=== PATIENT | female | born 1990 | race Caucasian/White ===

== ENCOUNTER 2019-11-26 09:48 | Emergency (ER) | payer OTHER ==
[2019-11-26 10:33] LABS: BILIRUBIN,URINE NEGATIVE (NEGATIVE); GLUCOSE, URINE (UA) NEGATIVE (NEGATIVE); KETONES,URINE (UA) NEGATIVE (NEGATIVE); LEUKOCYTE ESTERASE, URINE NEGATIVE (NEGATIVE); NITRITE,URINE NEGATIVE (NEGATIVE); OCCULT BLOOD,URINE MODERATE (NEGATIVE); PROTEIN,URINE NEGATIVE (NEGATIVE); UROBILINOGEN,URINE 0.2 (NORMAL) E.U./dL (NORMAL)
[2019-11-26 10:37] LABS: BASOPHILS % (AUTO) 0.6 %; EOSINOPHILS % (AUTO) 0.6 %; HGB - HEMOGLOBIN 13.8 g/dL (12.0-16.0); LYMPHOCYTES # (AUTO) 1.4 10^3/uL (1.5-3.5); LYMPHOCYTES % (AUTO) 26.7 %; MEAN CORPUSCULAR HEMOGLOBIN 32.9 pg (27.0-31.0); MEAN CORPUSCULAR HGB CONC 34.4 g/dL (32.0-36.0); MEAN CORPUSCULAR VOLUME 95.5 fL (81.0-99.0); MEAN PLATELET VOLUME 9.5 fL (7.9-10.8); MONOCYTES # (AUTO) 0.4 10^3/uL (0.0-1.0); MONOCYTES % (AUTO) 6.9 %; NEUTROPHILS # (AUTO) 3.5 10^3/uL (1.5-6.6); NEUTROPHILS % (AUTO) 64.8 %; PLT - PLATELET COUNT 244 10^3/uL (130-450); RED CELL DISTRIBUTION WIDTH 12.2 % (12.0-15.0); WHITE BLOOD COUNT 5.4 x10^3/uL (4.8-10.8)
[2019-11-26 10:51] LABS: ALBUMIN 4.3 g/dL (3.2-5.5); ALBUMIN/GLOBULIN RATIO 1.4 (1.0-2.2); BILIRUBIN,TOTAL 0.9 mg/dL (0.2-1.0); CALCIUM 9.2 mg/dL (8.5-10.3); CREATININE 0.7 mg/dL (0.4-1.0); TOTAL PROTEIN 7.3 g/dL (6.7-8.2)
[2019-11-26 10:52] LABS: CLARITY,URINE CLEAR (CLEAR)
[2019-11-26 10:53] LABS: BACTERIA,URINE Rare /HPF (None Seen); RBC,URINE 0-5 /HPF (0-5); SQUAMOUS EPITHELIAL CELL,UR RARE Squamous (<= Few)
--- NOTE | 2019-11-26 11:48 | Ultrasound Report ---
Reason: 4wks bleeding Procedure Date: 11/26/2019 Accession Number: [id number] / [id number] Procedure: US - OB First Trimester CPT Code: Final Report FULL RESULT: EXAM: FIRST TRIMESTER OBSTETRIC ULTRASOUND (Less than 11 weeks) EXAM DATE: 11/26/2019 11:05 AM. CLINICAL HISTORY: 4 weeks , vaginal bleeding, no beta-hCG available. LMP: 11/01/2019. COMPARISONS: None. TECHNIQUE: Transabdominal and transvaginal ultrasound examination with static image documentation. CLINICAL DATES: EGA 3 weeks 5 days with GORDY 08/07/2020 based on LMP. ASSESSMENT: Gestational Sac: Not visible. Embryo: Not visible. Cardiac activity: Not applicable. Yolk sac: Not applicable. Amniotic fluid: Not applicable. Early placenta: Not applicable. Other: None. MATERNAL STRUCTURES: Uterus: Anteverted. Unremarkable. Cervix: Closed. Right Ovary/Adnexa: The ovary measures 3.1 x 2.2 x 2.1 cm, volume 7.5 cc. Unremarkable. Left Ovary/Adnexa: The ovary measures 2.6 x 2.4 x 1.7 cm, volume 5.5 cc. Unremarkable. Free Fluid: Trace. Other: None. IMPRESSION: 1. No gestational sac currently visualized. This may represent a normal , too small to visualize, or potentially a failed . Sonographic follow-up to ensure viability suggested in approximately 3 weeks and correlation with beta-hCG trend. 2. 3 weeks 5 days estimated gestational age per LMP. RADIA
--- NOTE | 2019-11-26 12:15 | ED Physician Documentation ---
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 She is come to the emergency department for evaluation. She believes she might be 4 weeks along. She is passing some clots. She has had one prior that went well resulting in the of daughter 8 months ago. Review of Systems Constitutional: denies: Fever Eyes: denies: Decreased vision Ears: denies: Ear pain Nose: denies: Congestion Throat: denies: Sore throat Respiratory: denies: Cough GI: reports: Abdominal Pain. denies: Vomiting : denies: Dysuria, Frequency PD PAST MEDICAL HISTORY - Past Medical History Past Medical History: No - Past Surgical History Past Surgical History: No - Present Medications Home Medications: Ambulatory Orders Medication Instructions Recorded Confirmed Calcium Carbonate [Calcium] mg PO DAILY 11/26/19 Pnv No.95/Ferrous Fum/Folic AC 1 each PO 11/26/19 [ Caplet] - Allergies Allergies/Adverse Reactions: Allergies Allergy/AdvReac Type Severity Reaction Status Date / Time No Known Drug Allergies Allergy Verified 11/26/19 10:06 - Social History Does the pt smoke?: No Smoking Status: Never smoker Does the pt drink ETOH?: No Does the pt have substance abuse?: No - Immunizations Immunizations are current?: Yes PD ED PE NORMAL - Vitals Vital signs reviewed: Yes (hypertensive) - General General: Alert and oriented X 3, No acute distress, Well developed/nourished - HEENT HEENT: Atraumatic, PERRL, EOMI - Neck Neck: Supple, no meningeal sign - Respiratory Respiratory: No respiratory distress - Back Back: No CVA TTP, No spinal TTP - Derm Derm: Normal color, Warm and dry, No rash - Extremities Extremities: No deformity, No edema - Neuro Neuro: Alert and oriented X 3, 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, No motor deficit, No sensory deficit, Normal speech Eye Opening: Spontaneous Motor: Obeys Commands Verbal: Oriented GCS Score: 15 - Psych Psych: Normal mood, Normal affect Results - Vitals Vitals: Vital Signs - 24 hr 11/26/19 11/26/19 10:03 12:33 Temperature 36.7 C Heart Rate 77 74 Respiratory 18 12 Rate Blood Pressure 139/92 H 134/88 H O2 Saturation 99 99 Oxygen O2 Source Room air - Labs Labs: Laboratory Tests 11/26/19 11/26/19 11/26/19 10:10 10:30 10:30 WBC 5.4 RBC 4.20 Hgb 13.8 Hct 40.1 MCV 95.5 MCH 32.9 H MCHC 34.4 RDW 12.2 Plt Count 244 MPV 9.5 Neut # (Auto) 3.5 Lymph # (Auto) 1.4 L [place] # (Auto) 0.4 Eos # (Auto) 0.0 Baso # (Auto) 0.0 Absolute Nucleated RBC 0.00 Nucleated RBC % 0.0 Sodium 137 Potassium 3.8 Chloride 105 Carbon Dioxide 24 Anion Gap 8.0 BUN 11 Creatinine 0.7 Estimated GFR (MDRD) 98 Glucose 108 H Calcium 9.2 Total Bilirubin 0.9 AST 17 ALT 14 Alkaline Phosphatase 62 Total Protein 7.3 Albumin 4.3 Globulin 3.0 Albumin/Globulin Ratio 1.4 Lipase 36 HCG, Quant Urine Color LIGHT YELLOW Urine Clarity CLEAR Urine pH 7.0 Ur Specific Turner <=1.005 Urine Protein NEGATIVE Urine Glucose (UA) NEGATIVE Urine Ketones NEGATIVE Urine Occult Blood MODERATE H Urine Nitrite NEGATIVE Urine Bilirubin NEGATIVE Urine Urobilinogen 0.2 (NORMAL) Ur Leukocyte Esterase NEGATIVE Urine RBC 0-5 Urine WBC 0-3 Ur Squamous Epith Cells RARE Squamous Urine Bacteria Rare Ur Microscopic Review INDICATED Urine Culture Comments NOT INDICATED Blood Type 11/26/19 11/26/19 10:30 10:30 WBC RBC Hgb Hct MCV MCH MCHC RDW Plt Count MPV Neut # (Auto) Lymph # (Auto) [place] # (Auto) Eos # (Auto) Baso # (Auto) Absolute Nucleated RBC Nucleated RBC % Sodium Potassium Chloride Carbon Dioxide Anion Gap BUN Creatinine Estimated GFR (MDRD) Glucose Calcium Total Bilirubin AST ALT Alkaline Phosphatase Total Protein Albumin Globulin Albumin/Globulin Ratio Lipase HCG, Quant 588.77 Urine Color Urine Clarity Urine pH Ur Specific Turner Urine Protein Urine Glucose (UA) Urine Ketones Urine Occult Blood Urine Nitrite Urine Bilirubin Urine Urobilinogen Ur Leukocyte Esterase Urine RBC Urine WBC Ur Squamous Epith Cells Urine Bacteria Ur Microscopic Review Urine Culture Comments Blood Type A POSITIVE - Rads (name of study) ob u/s Radiology: Prelim report reviewed (Impression: 1. No gestational sac currently visualized. This may represent a normal , too small to visualize, or potentially a failed . Sonographic follow-up to visualize viability suggested in approximately 3 weeks and correlation with beta hCG trend. 3 weeks 5 days estimated gestational age per LMP.), EMP read indepedently, See rad report PD MEDICAL DECISION MAKING - ED course Complexity details: reviewed results, re-evaluated patient, considered differential, d/w patient ED course: 29-year-old female with early has a quant of 588 and no visualized in the uterus on formal ultrasound. She will need repeat hCG in 2 days time and possibly a repeat ultrasound in 2 to 3 weeks. I discussed with the patient the importance of the repeat blood test and the likely outcomes and she will follow-up. Departure - Departure Disposition: 01 Home, Self Care Clinical Impression: Hemorrhage, , early, Threatened Condition: Stable Instructions: ED Abdominal Pain Rule Out Ectopic, ED Miscarriage Poss Follow-Up: CHAITANYA PERDUE [Primary Care Provider] - Comments: Today your quantitative hCG is 588 and this would usually represent a that is too early to be seen by ultrasound. We did not find any evidence of an intrauterine on your ultrasound. This may represent a failed or just too early. A repeat hCG will need to be done and 2 days. Follow-up with your OB doctor. Discharge Date/Time: 11/26/19 12:34
[2019-11-26 12:34] VITALS: BP 134/88
== END 2019-11-26 12:34 | disposition home or self-care (01) ==
LOC: ED 09:48
DX: O20.0 Threatened abortion (principal); Z3A.01 Less than 8 weeks gestation of pregnancy
CPT/HCPCS: 36415; 76801; 76817; 80053; 81001; 81003; 83690; 84702; 85025; 86900; 86901; 87086; 99283; 99284

== ENCOUNTER 2019-11-28 07:52 | Outpatient (CLI) | payer OTHER | END 2019-11-28 23:59 | disposition home or self-care (01) | LOC: LAB.WCP 07:52 | PROVIDERS: ATTEND Obstetrics & Gynecology | DX: O20.0 Threatened abortion (principal); Z3A.00 Weeks of gestation of pregnancy not specified | CPT/HCPCS: 36415; 84702 ==

== ENCOUNTER 2020-07-22 16:16 | Outpatient (CLI) | payer OTHER ==
--- NOTE | 2020-07-23 09:11 | Ultrasound Report ---
PROCEDURE: OB F/U or Repeat INDICATIONS: UTERINE SIZE/DATE DISCREPANCY OUTSIDE/PRIOR DATING DATA: Last menstrual period (LMP): Unknown. LMP-based estimated date of delivery (GORDY): Not applicable. First dating scan (date and location): 02/18/2020, office of OB provider at [facility]. Estimated date of delivery (GORDY) from first dating scan: 08/29/2020. TECHNIQUE: Real-time scanning was performed of the fetus, with image documentation and biometric measurements. Endovaginal scanning: Not performed COMPARISON: Notes from in office ultrasound of the provider dated 02/18/2020, second trimester ultras ound report dated 04/15/2020 FINDINGS: General: A single living intrauterine gestation is present. Presentation: Cephalic Placenta: Placental position is posterior, without previa. Amniotic fluid index: 12.3 cm, normal for gestational age. heart rate: 135 beats per minute. Maternal cervical canal: 5 cm long; normal length is 2.5 cm or more. biometrics: Biparietal diameter: 8.7 cm, 35 weeks, 2 days Head circumference: 31.6 cm, 35 weeks, 4 days Abdominal circumference: 32.3 cm, 36 weeks, 2 days Femur length: 3.6 cm, 32 weeks, 4 days Estimated gestational age from initial scan: 34 weeks, 4 days. Composite gestational age from present scan: 35 weeks, 0 days Estimated weight and percentile: 2605 g, 63rd percentile Measurement variability in biometric dating: +/- 10 days from 12-20 weeks gestation, +/- 2 weeks from 20-30 weeks gestation, +/- 3 weeks at 30 weeks gestation or more. IMPRESSION: 1. Single living intrauterine with appropriate growth for gestational age. 2. Closed cervix and normal amniotic fluid volume. Reviewed by: Cheryle Perdue MD on 07/23/2020 9:10 AM PST Approved by: Cheryle Perdue MD on 07/23/2020 9:10 AM PST Station ID: [id number]
== END 2020-07-22 16:17 | disposition home or self-care (01) ==
LOC: DI 16:16
PROVIDERS: ATTEND Advanced Practice Midwife
DX: O26.849 Uterine size-date discrepancy, unspecified trimester (principal)

== ENCOUNTER 2020-08-13 07:00 | Outpatient (CLI) | payer OTHER | END 2020-08-13 23:59 | disposition home or self-care (01) | LOC: LAB.R 07:00 | PROVIDERS: ATTEND Advanced Practice Midwife | DX: Z34.90 Encounter for supervision of normal pregnancy, unspecified, unspecified trimester (principal); Z36.85 Encounter for antenatal screening for Streptococcus B | CPT/HCPCS: 87797 ==

== ENCOUNTER 2020-09-07 09:06 | Outpatient (CLI) | payer OTHER ==
[2020-09-07 09:36] VITALS: BP 125/83
[2020-09-07 10:16] LABS: RUPTURE OF MEMBRANES PLUS NEGATIVE (NEGATIVE)
--- NOTE | 2020-09-07 15:15 | PROVIDER PROGRESS NOTE ---
- HPI Chief Complaint: Leakage of vaginal fluid Current : Current EDU 09/03/20 Gestation 40 Weeks and 4 Days 3 Para 1 Vital Signs Temperature 36.7 C 09/07/20 09:24 Heart Rate 93 09/07/20 09:24 Respiratory Rate 16 09/07/20 09:24 Blood Pressure 125/83 H 09/07/20 09:24 O2 Saturation 100 09/07/20 09:24 Temperature 36.7 C 09/07/20 09:41 Heart Rate 93 09/07/20 09:41 Respiratory Rate 16 09/07/20 09:41 Blood Pressure 125/83 H 09/07/20 09:41 O2 Saturation 100 09/07/20 09:41 - Procedures OB Procedure Performed: NST NST Procedure: NST Procedure Start Date 09/07/20 Start Time 09:22 Stop Time 10:31 Vibroacoustic Stimulation Used No Patient States Movement Yes - Plan Plan: Shelia presents to [facility] with c/o small gush of clear fluid last night following by moderate menstrual-like cramping which has mostly resolved since that time. She has noted increased vaginal discharge but wants to ensure her water has not broken. She denies vaginal bleeding. She reports +FM. She denies further questions or concerns today. She denies itching, burning or discomfort associated with discharge and denies foul odor. NST performed 09/07/2020 NST read 09/07/2020 NST reactive FHR baseline 150, moderate variability, + accels, no decels Intermittent, mild contractions in irregular pattern that palpate mild with soft resting tone. ROM+ - NEGATIVE SVE deferred A/P: Vaginal discharge in Pt released home with precautions. Has IOL scheduled later this week. Pt verbalized understanding and agrees to above plan. She denies further questions or concerns at this time. FINAL DIAGNOSIS: Vaginal discharge in
== END 2020-09-07 10:35 | disposition home or self-care (01) ==
LOC: WFO 09:06 → FBP 09:17 → WFO 10:35
PROVIDERS: ATTEND Nurse Practitioner Obstetrics & Gynecology
DX: O99.891 Other specified diseases and conditions complicating pregnancy (principal); N89.8 Other specified noninflammatory disorders of vagina; Z3A.40 40 weeks gestation of pregnancy
CPT/HCPCS: 59025; 84112; 99213

== ENCOUNTER 2020-09-07 22:38 | Inpatient (IN) | payer OTHER ==
[2020-09-08] MEDS ORDERED: miSOPROStoL 200 MCG TABLET BC PRN (00:01)
[2020-09-08] MEDS ORDERED: OXYTOCIN 10 UNIT/ML VIAL IM PRN (00:01)
[2020-09-08] MEDS ORDERED: TRANEXAMIC ACID IN NACL 1,000 MG/100 ML BAG IV PRN (00:01)
[2020-09-08] MEDS ORDERED: CARBOPROST TROMETHAMINE 250 MCG/ML AMP IM PRN (00:01)
[2020-09-08] MEDS ORDERED: fentaNYL 100 MCG/2 ML VIAL IVP PRN (00:01)
[2020-09-08] MEDS ORDERED: SODIUM CHLORIDE FLUSH 0.9% 10 ML SYRINGE IVP PRN (00:01)
[2020-09-08] MEDS ORDERED: ONDANSETRON 4 MG/2 ML VIAL IVP PRN (00:01)
[2020-09-08] MEDS ORDERED: METHYLERGONOVINE 0.2 MG/ML VIAL IM PRN (00:01)
[2020-09-08] MEDS ORDERED: LIDOCAINE-MPF 1% 30 ML VIAL ID PRN (00:01)
[2020-09-08] MEDS ORDERED: OXYTOCIN/SODIUM CHLORIDE 500 ML IV PRN (00:01)
[2020-09-08] MEDS: LACTATED RINGERS 1,000 ML IV SCH ×2 (00:22→03:57)
[2020-09-08 00:35] LABS: BASOPHILS % (AUTO) 0.2 %; EOSINOPHILS % (AUTO) 0.1 %; HCT - HEMATOCRIT 39.8 % (37.0-47.0); HGB - HEMOGLOBIN 13.8 g/dL (12.0-16.0); LYMPHOCYTES # (AUTO) 1.8 10^3/uL (1.5-3.5); LYMPHOCYTES % (AUTO) 14.9 %; MEAN CORPUSCULAR HGB CONC 34.7 g/dL (32.0-36.0); MEAN PLATELET VOLUME 10.6 fL (7.9-10.8); MONOCYTES # (AUTO) 0.9 10^3/uL (0.0-1.0); MONOCYTES % (AUTO) 7.1 %; NEUTROPHILS # (AUTO) 9.4 10^3/uL (1.5-6.6); NEUTROPHILS % (AUTO) 77.1 %; PLT - PLATELET COUNT 198 10^3/uL (130-450); RED BLOOD COUNT 4.06 10^6/uL (4.20-5.40); RED CELL DISTRIBUTION WIDTH 12.6 % (12.0-15.0); WHITE BLOOD COUNT 12.2 x10^3/uL (4.8-10.8)
[2020-09-08] MEDS ORDERED: BUPIVACAINE 0.25% PF 10 ML VIAL ONE (00:49)
[2020-09-08] MEDS ORDERED: fentaNYL 100 MCG/2 ML VIAL ONE (00:49)
[2020-09-08] MEDS ORDERED: ROPIVACAINE 0.2% 200 MG/100 ML BAG EP ONE (00:49)
[2020-09-08] MEDS ORDERED: SODIUM CHLORIDE FLUSH 0.9% 10 ML SYRINGE IVP SCH (01:00)
--- NOTE | 2020-09-08 01:20 | ANESTHESIA ---
Pre-Anesthesia VS, & Labs - Diagnosis active labor - Procedure labor epidural Vital Signs: Temp Pulse Resp BP Pulse Ox 36.5 C 70 22 129/82 H 100 09/07/20 23:08 09/07/20 23:08 09/07/20 23:08 09/07/20 23:08 09/07/20 23:08 Height: 5 ft 7 in Weight (kg): 98.157 kg Body Mass Index: 33.9 BMI Classification: Obese - Is Patient ?: Yes - Lab Results Current Lab Results: Laboratory Tests 09/08/20 00:15: Blood Type A POSITIVE, Antibody Screen NEGATIVE 09/08/20 00:15: WBC 12.2 H, RBC 4.06 L, Hgb 13.8, Hct 39.8, MCV 98.0, MCH 34.0 H , MCHC 34.7, RDW 12.6, Plt Count 198, MPV 10.6, Neut # (Auto) 9.4 H, Lymph # (Auto) 1.8, [place] # (Auto) 0.9, Eos # (Auto) 0.0, Baso # (Auto) 0.0, Absolute Nucleated RBC 0.00, Nucleated RBC % 0.0 Lab results reviewed: Yes Fish Bones: 09/08/20 00:15 Home Medications and Allergies Active Medications Carboprost Tromethamine (Carboprost Tromethamine 250 Mcg/Ml Amp) 250 mcg IM Q15M PRN PRN Reason: Step 4: Hemorrhage protocol Stop: 09/13/20 00:02 Fentanyl (Fentanyl 100 Mcg/2 Ml Vial) 50 mcg IVP Q1H PRN PRN Reason: PAIN Lactated Ringer's (Lr) 1,000 mls @ 150 mls/hr IV .Q6H40M DYLAN Last Infusion: 09/08/20 00:51 Dose: 150 mls/hr Documented by: Oxytocin/Sodium Chloride (Pitocin/Sodium Chloride) 500 mls @ 999 mls/hr IV PRN PRN; Protocol PRN Reason: POST- HEMORR PREVENTION Stop: 09/13/20 00:02 Tranexamic Acid (Tranexamic 1,000 Mg/100ml-Nacl) 1,000 mg in 100 mls @ 600 mls/hr IV .ONCE PRN PRN Reason: EBL >1200mL and within 3hr Stop: 09/13/20 00:02 Lidocaine HCl (Lidocaine-Mpf 1% 30 Ml Vial) 30 ml ID .ONCE PRN PRN Reason: PERINEAL REPAIR Stop: 09/13/20 00:02 Methylergonovine Maleate (Methylergonovine 0.2 Mg/Ml Vial) 0.2 mg IM .ONCE PRN PRN Reason: Step 2: Hemorrhage protocol Stop: 09/13/20 00:02 Misoprostol (Misoprostol 200 Mcg Tablet) 800 mcg BC .ONCE PRN PRN Reason: Step 3: Hemorrhage protocol Stop: 09/13/20 00:02 Ondansetron HCl (Ondansetron 4 Mg/2 Ml Vial) 4 mg IVP Q4H PRN PRN Reason: Nausea / Vomiting Oxytocin (Oxytocin 10 Unit/Ml Vial) 10 unit IM .ONCE PRN PRN Reason: Step one: If no IV access Stop: 09/13/20 00:02 Sodium Chloride (Sodium Chloride Flush 0.9% 10 Ml Syringe) 10 ml IVP PRN PRN PRN Reason: NEEDED PER PROVIDER ORDERS Sodium Chloride (Sodium Chloride Flush 0.9% 10 Ml Syringe) 10 ml IVP 0100,0900,1700 [facility] Pnv No.95/Ferrous Fum/Folic AC [ Caplet] 1 each PO DAILY 11/26/19 Allergies/Adverse Reactions: Allergies Allergy/AdvReac Type Severity Reaction Status Date / Time No Known Drug Allergies Allergy Verified 09/07/20 23:16 Anes History & Medical History - Anesthetic History Anesthesia Complications: reports: No previous complications Family history of Anesthesia Complications: Denies Family history of Malignant Hyperthermia: Denies - Medical History Smoking Status: Never smoker Exam General: Alert, Oriented x3, Cooperative, No acute distress Plan Anesthesia Type: Epidural Consent for Procedure(s) Verified and Reviewed: Yes Code Status: Attempt Resuscitation ASA classification: 2-Mild systemic disease Is this case an emergency?: No
--- NOTE | 2020-09-08 01:53 | HISTORY & PHYSICAL EXAMINATION ---
Admit History - Visit Reason Visit Reason: Contractions - : 3 Parity: 1 Premature: 0 Ectopic: 0 : 1 Care: positive: [facility] Risk/History: positive: None Complications This : positive: None Smoking Status: Former smoker - Mother's Labs Mother's Blood Type: positive: A Mother's RH: positive: Positive GBS: positive: Group B Step Negative Rubella Status: positive: Immune Meds/Allgy - Home Medications Home Medications: Ambulatory Orders Medication Instructions Recorded Confirmed Pnv No.95/Ferrous Fum/Folic AC 1 each PO DAILY 11/26/19 09/07/20 [ Caplet] - Allergies Allergies/Adverse Reactions: Allergies Allergy/AdvReac Type Severity Reaction Status Date / Time No Known Drug Allergies Allergy Verified 09/07/20 23:16 Review of Systems - Constitutional Constitutional: denies: Fatigue, Fever, Chills - Eyes Eyes: denies: Blurred vision, Spots in vision, Dipolpia - Cardiovascular Cariovascular: denies: Irregular heart rate, Chest pain, Edema - Respiratory Respiratory: denies: SOB at rest - Gastrointestinal Gastrointestinal: denies: Change in bowel habits - Integumentary Integumentary: denies: Rash, Pruritis - Neurological Neurological: denies: Headache Physical - Abdominal Exam Vital Signs: Temp Pulse Resp BP Pulse Ox 36.5 C 70 22 129/82 H 100 09/08/20 00:36 09/07/20 23:08 09/07/20 23:08 09/07/20 23:08 09/07/20 23:08 Contraction Frequency (min/apart): 2-4 Contraction Intensity: positive: Moderate Uterine Resting Tone: positive: Soft - Monitoring Heart Rate Baseline: 140 Strip Review: positive: Category I - Presentation Presentation: positive: Vertex - Vaginal Exam Membranes: positive: Membranes intact Dilation (in cm): 4 Effacement (%): 80 Station: positive: -2 - Speculum Exam Speculum Exam Performed: positive: No Plan for Labor - Plan For Labor I expect patient to be DC'd or transferred within 96 hours.: Yes Plan for Labor: HPI: Shelia is a 30yo @ 40.5wks gestation by LMP c/w 12.3 wk U/S who presents to [facility] with c/o contractions. She reports contractions have increased in frequency and intensity over the last several hours. She denies vaginal bleeding. She experienced a small "gush" of fluid last night but presented this morning for evaluation and her ROM+ was negative. She states she has not noticed any continued leakage of fluid since that time. She reports +FM. Upon arrival SVE /-2 and vertex. Patient monitored x 1 hour and repeat SVE -2. She has been a patient of [facility] since her [facility] care [facility] at . She has received consistent care through the duration of her which has remained uncomplicated. She will be admitted to [facility] for expectant management. Dating criteria: LMP 11/27/2019 Initial ultrasound @ 12.3wks c/w LMP dating Serial exams - agree Medications: PNV; TUMS PRN Allergies: NKDA OB Hx: G1: 03/07/2019, 41wks, , 13hr labor, epidural, NHOH, Female, 8lb6oz. 3hr second stage, 3rd degree laceration G2: 11/27/2019 - SAB G3: current PMHx: no significant Surgical Hx: [place] tooth (2008) Social Hx: Former smoker, No ETOH or IVDA. 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 3VC. JUDITH wnl. EFW 51%. "Decreased abdominal to head circumference, screen for maternal diabetes" Growth US: @33.6wks. JUDITH 12.3. Posterior placenta. EFW 63%. Glucola: 167 (3hr- 78/134/122/112- wnl) Flu: 04/24/2020 TDAP : 06/09/2020 GBS at 37.0- NEG HSV: denies self and partner [place] . Husb: Brett (civilian). 1yo daughter Suze (8#6oz, epidural, 3h push, 3rd degree lac); Baby: BOY Chinmay? "wait and see" Desires unmedicated delivery pp contraception: has had great success with Mirena in past. Aware needs separate referral from [facility]. PAP:02/18/2020- negative HPV, nilm per patient. Physical Exam: Normocephalic, atraumatic Heart RRR w/o M/G/R Lungs CTAB Abdomen gravid, soft, and nontender FHR baseline 130s, moderate variability, + accels, no decels Contractions palpate moderate every 2-3 minutes with soft resting tone SVE 4/80/-2, vertex Bilateral LE's trace edema supportive at the bedside. Mood is good. Assessment: 30yo @ 40.3wks gestation by LMP c/w 12.3wk U/S Active labor GBS neg Plan: Admit to [facility] for expectant management Epidural per maternal request Encouraged position changes in bed as tolerated. Anticipate
--- NOTE | 2020-09-08 05:37 | DELIVERY NOTE ---
Delivery Note - Labor Labor: positive: Spontaneous - Delivery Method Delivery Method: positive: Spontaneous vaginal delivery - Presentation Presentation: positive: Vertex, APRIL - left occiput anterior - Nuchal Cord Nuchal Cord: positive: Present, Reduced - Amniotic Fluid Description Amniotic Fluid Description: positive: Clear - Episiotomy Type Episiotomy Type: positive: None - Laceration Laceration: positive: 1st degree, Perineal - Suture Suture Type: positive: Vicryl Suture Size: positive: 3-0 - Delivery Outcome Delivery Outcome: positive: Livebirth - : positive: Placed in direct skin contact with mother, Bulb syringe, Stimulated, Warmed, [place] used sex: positive: Male - Cord Cord: positive: 3 vessels - Placenta Placenta: positive: Intact, Spontaneous - Estimated Blood Loss Estimated Blood Loss (in cc): 200 - Post Delivery Events Post Delivery Events: positive: No post delivery events - Delivery Comments (Free Text/Narrative) Delivery Comments (Free Text/Narrative): Labor: This 30yo @ 40.5wks gestation by LMP c/w 12.3wk U/S presented to [facility] on 09/07/2020 at approximately 2240 with c/o contractions. Cervix was 3/80/-2 and vertex. Pt ambulated x 1 hr with repeat SVE 4/80/-2. Pt was admitted to [facility] for expectant management. FHR pattern demonstrated Category I pattern throughout labor. Normal labor course. Epidural per maternal request. AROM occurred near 0435 and was noted to be a moderate amount of clear fluid. Pt progressed to c/c/+2 at 0435 with onset of active pushing at 0455. . Normal of a viable male infant on 09/08/2020 at 0458. Total second stage 3 minutes. Nuchal cord x 2 and body cord x 1 easily reduced. Compound rig ht hand noted. The was placed on maternal abdomen, stimulated, dried, and placed skin to sin. 's were 7/9 at 1 and 5 min respectively. Pitocin administered via IV for hemostasis. The umbilical cord was allowed to stop pulsating at which time it was doubly clamped by CNM and cut by FOB. Cord blood was obtained. Fundal massage and gentle cord traction applied for active management of the third stage. Placenta delivered spontaneously and intact at 0503. EBL 200mL. Fourth stage: Uterine fundus firm and there is no excessive bleeding. The perineum, vagina, and cervix were inspected and found to have 1st degree perineal laceration. In addition there was noted to be an approximately 1cm x 1cm raised cyst protruding from the laceration. The cyst was grasped with tissue forceps and a small amount of milky serosal fluid freely drained. Remnants of the cyst were removed with sterile scissors and repair was completed using a 3-[address]-1 needle, in standard fashion under sterile conditions. Vaginal examination following repair was performed. Tissues well approximated. initiated. Family bonding well. Both mother and baby were left in stable condition.
[2020-09-08] MEDS ORDERED: HYDROCORTISONE 1% CREAM 28 GM TUBE PR PRN (05:44)
[2020-09-08] MEDS ORDERED: WITCH HAZEL/GLYCERIN 1 PAD TOP PRN (05:44)
[2020-09-08] MEDS: ACETAMINOPHEN 500 MG TABLET PO SCH ×2 (07:50→16:18)
[2020-09-08] MEDS: IBUPROFEN 800 MG TABLET PO SCH ×3 (09:02→21:56)
[2020-09-08] MEDS: DOCUSATE SODIUM 100 MG CAPSULE PO SCH ×2 (09:02→21:56)
[2020-09-09] MEDS: ACETAMINOPHEN 500 MG TABLET PO SCH ×2 (01:02→09:56)
[2020-09-09] MEDS: IBUPROFEN 800 MG TABLET PO SCH ×2 (04:15→09:57)
--- NOTE | 2020-09-09 07:51 | Discharge Plan ---
Discharge Plan Problem Reviewed?: Yes Disposition: Home, Self Care Condition: Good Diet: Regular Activity Restrictions: No Restrictions Shower Restrictions: No Driving Restrictions: No Weight Bearing: Full Weight No Smoking: If you smoke, Please STOP! Call for help. Follow-up with: Katina Clark CNM, ARNP [Provider Admit Priv/Credential] -
--- NOTE | 2020-09-09 07:55 | PROVIDER PROGRESS NOTE ---
Subjective - Subjective Subjective: FINAL PROGRESS NOTE: S: Bonding well with baby. without difficulty other than mild discomfort with initial latch that resolves shortly into the feed. Bleeding decrease and is light. Pain well controlled with oral medications. They are eager to be discharged home this morning. supportive at the bedside. O: BP 102/58, HR 80, RR 19, T36.5 Heart RRR w/o M/G/R, lungs CTAB, abdomen soft and nontender with fundus firm at U. Perineum intact, repair without edema. Light lochia rubra. Bilateral LEs trace edema. A: 30yo -->P2 PPD#1 s/p TSVD of viable male infant Normal recovery P: Reviewed pp self care and warning s/sx. Has emergency contact information. F/u at [facility] in 1 week or sooner PRN. Pt and partner verbalized understanding and agrees to above plan. She denies further questions or concerns at this time. Objective - Vital Signs/Intake & Output Vital Signs: Vital Signs x48h Pulse Resp BP 09/09/20 04:17 80 19 102/58 L Intake & Output: Intake & Output 09/06/20 09/07/20 09/08/20 09/09/20 23:59 23:59 23:59 23:59 Intake Total 2195.50 Output Total 1150 Balance 1045.50 - Lab Results Fish Bones: 09/08/20 00:15 Other Labs: Lab Results x24hrs 09/08/20 Range/Units 00:15 Coronavirus (PCR) NEGATIVE
[2020-09-09 08:39] VITALS: BP 128/76
[2020-09-09] MEDS: DOCUSATE SODIUM 100 MG CAPSULE PO SCH (09:56)
--- NOTE | 2020-09-09 10:11 | DISCHARGE SUMMARY ---
Physician: GALI Mcelroy DATE OF ADMISSION: 09/08/2020 DATE OF DISCHARGE: 09/09/2020 DIAGNOSES ON ADMISSION: 1. A 30-year-old G2, P1-0-0-1, at 40.3 weeks' gestation by LMP consistent with 12.3 week ultrasound. 2. Active labor. 3. Group B Streptococcus negative. DIAGNOSES ON DISCHARGE: 1. A 30-year-old G2, P2-0-0-2, status post spontaneous vaginal delivery on 09/08/2020. 2. . 3. Normal recovery. HISTORY OF PRESENT ILLNESS: She is a patient of [facility], who presented on 2020 at approximately 2240 with complaints of contractions. She was noted to be 3 cm dilated, 80% ef faced, -2 station, vertex position. She ambulated for one hour and progressed to 4 cm dilated, 80% e ffaced, -2 station. She was admitted for expectant management. Normal labor course. Spontaneous ru pture of membranes occurred near 0435 and was noted to be a moderate amount of clear fluid. The rishi ent progressed to spontaneously deliver a viable male on 09/08/2020 at 0458. Nuchal cord x2 a nd body cord x1 easily reduced. Compound right hand noted. Apgars were 7 and 9 at 1 and 5 minutes r espectively. EBL 200 mL. The perineum, vagina and cervix were inspected and found to have first-degr ee perineal laceration, which was repaired using a 3-0 Vicryl on a CT1 needle in standard fashion und er sterile conditions. She has been doing well in her course. She is ambulating and tolerating a regular diet. She is urinating without difficulty and her lochia is normal. Her pain is well controlled with oral medications. She will be discharged home today on day #1 with instructions to continue he r vitamin while and to take ibuprofen and Tylenol [id number] as needed f or pain management. She intends to followup with myself at [facility] in 1 week for routine visit or sooner if needed. She has been given precautions to call if she has any worsening fevers, chills, abdominal pain, increased bleeding or foul-smelling vaginal lochia. TD: 09/09/2020 09:19
--- NOTE | 2020-09-09 10:46 | Labor Flowsheet ---
Labor Flowsheet Datetime Report Generated by CPN: 09/09/2020 10:46 Datetime: 09/09/2020 08:17 VITAL SIGNS NBP Sys/Emma/Mean (mmHg): 128 : 76 : 88 Pulse: 78 Datetime: 09/08/2020 05:08 Stage 2 Comments: repair in progress Datetime: 09/08/2020 04:45 STAGE 2 Pushing: No Urge to Push Datetime: 09/08/2020 04:44 I/O Interventions: Hernandez Discontinued Patient Care Comments: tip intact LaborFlag: Labor Datetime: 09/08/2020 04:42 COMMUNICATION Communication: Call/Page Placed to Provider Notification Reason: Status Update Communication Comments: CNM on her way Datetime: 09/08/2020 04:39 Monitor Interventions for FHR: Ultrasound Adjusted Pain Presence: None/Denies Patient Position/Activity: Right Tilt; High Fowlers Datetime: 09/08/2020 04:35 VAGINAL EXAM Dilatation (cm): 10.0 Effacement (%): 100 Station: 2 Datetime: 09/08/2020 04:30 Membranes Ruptured Date/Time: 09/08/2020 04:30 Membranes Rupture Method: Spontaneous Amniotic Fluid Color: Clear Amniotic Fluid Amount: Small Amniotic Fluid Odor: Normal Vaginal Bleeding: Normal Show Datetime: 09/08/2020 04:28 Actions for Decelerations: Side to Side Datetime: 09/08/2020 04:00 UTERINE ACTIVITY Monitor Mode: Palpation Frequency (min): 2-4 Quality: Strong Duration (sec): 40-80 Pattern: Normal: <= 5 Contractions in 10 Minutes Resting Tone (Palpate): Relaxed ASSESSMENT A Monitor Mode: Telemetry FHR Baseline Rate : 145 Variability: Moderate 6-25 bpm Accelerations: 15X15 Decelerations: Late; Variable Category: Category II Datetime: 09/08/2020 03:53 Monitor Interventions for UA: [place] Adjusted Datetime: 09/08/2020 03:48 PATIENT CARE IV/Blood Work: IV Bolus Started Datetime: 09/08/2020 03:31 Temperature (C): 36.8 PAIN Pain Scale: 0 Pain Type: N/A Pain Coping: Talking Through Contractions Datetime: 09/08/2020 02:44 TEACHING Instructional Method: Verbal; Verbalized Understanding Labor/Induction: Interventions Datetime: 09/08/2020 02:41 Comments: pt turned to right lateral Datetime: 09/08/2020 02:23 Vital Sign Comments: pt denies s/s hypotension Datetime: 09/08/2020 02:15 Respirations: 18 Datetime: 09/08/2020 02:09 SpO2 (%): 100 Datetime: 09/08/2020 02:06 Exam by: M Antoine RN Hygiene: Krysta Care; Underpad Changed Datetime: 09/08/2020 01:43 Provider Reviewed Strip: Yes Datetime: 09/08/2020 01:30 FHR Baseline Changes: No Baseline Change Datetime: 09/08/2020 01:05 MATERNAL ASSESSMENT Level of Consciousness: Alert Nausea/Vomiting: Denies Datetime: 09/08/2020 01:02 Epidural Procedure: Completed Epidural Procedure Other: Pump Started Anesthesia Comments: pt tolerated well Datetime: 09/08/2020 00:59 Pain Location: Abdomen Pain Relief Measures: Epidural Given Datetime: 09/08/2020 00:39 Epidural Positioning: Sitting Datetime: 09/08/2020 00:38 MEDICATIONS Medication Comments: pt no longer using nitrous Datetime: 09/08/2020 00:34 Pain Assessment Comments: nitrous in progress Comfort Measures: Breathing/Relaxation; Family Support Datetime: 09/08/2020 00:26 Pain Management: PRN Medications; Pain Scale/Goals; Comfort Measures Teaching Comments: nitrous safety, must be self administered Datetime: 09/08/2020 00:17 ANESTHESIA Anesthesia Plans: Epidural Datetime: 09/08/2020 00:13 Provider Notified (Name): Rubin SAILING MASTER
== END 2020-09-09 10:45 | disposition home or self-care (01) | DRG 807 ==
LOC: WFO 22:38 → FBP 22:38 → WFO 09-08 → FBP 09-08 00:01
PROVIDERS: ADMIT Nurse Practitioner Obstetrics & Gynecology; ATTEND Nurse Practitioner Obstetrics & Gynecology
PROC: 10E0XZZ Delivery of Products of Conception, External Approach (ICD-10-PCS; principal; 2020-09-08)
PROC: 10907ZC Drainage of Amniotic Fluid, Therapeutic from Products of Conception, Via Natural or Artificial Opening (ICD-10-PCS; 2020-09-08)
PROC: 0HQ9XZZ Repair Perineum Skin, External Approach (ICD-10-PCS; 2020-09-08)
DX: O48.0 Post-term pregnancy (principal); Z37.0 Single live birth; O70.0 First degree perineal laceration during delivery; O69.81X0 Labor and delivery complicated by cord around neck, without compression, not applicable or unspecified; O69.82X0 Labor and delivery complicated by other cord entanglement, without compression, not applicable or unspecified; O32.6XX0 Maternal care for compound presentation, not applicable or unspecified; O75.89 Other specified complications of labor and delivery; N90.7 Vulvar cyst; Z3A.40 40 weeks gestation of pregnancy; Z87.891 Personal history of nicotine dependence; Z20.822 Contact with and (suspected) exposure to COVID-19
CPT/HCPCS: 85025; 86850; 86900; 86901; 87635; 99213; A9270; J7120